=== PATIENT | male | born 1975 | race Asian ===

== ENCOUNTER 2019-01-19 00:22 | Emergency (ER) | payer SELFPAY ==
[~2019-01-19] VITALS: Ht 175.3 cm; Wt 70.3 kg
[2019-01-19 00:32] VITALS: Ht 175.3 cm; Wt 70.3 kg
[2019-01-19 02:16] LABS: BASOPHIL % 0.3 % (0-2); PLATELET COUNT 166 x10^3mcL (130-400); RED CELL DISTRIBUTION WIDTH 13.6 % (11.5-14.5)
[2019-01-19 02:24] LABS: CALCIUM 9.7 mg/dL (8.5-10.1); CARBON DIOXIDE 23.6 mmol/L (21-32); CREATININE SERUM 1.5 mg/dL (0.7-1.3); POTASSIUM SERUM 4.2 mmol/L (3.5-5.1)
[2019-01-19 02:29] LABS: ALBUMIN 4.2 g/dL (3.4-5.0); BILIRUBIN TOTAL 0.77 mg/dL (0.20-1.00)
[2019-01-19 02:31] LABS: TOTAL PROTEIN, SERUM 8.5 g/dL (6.4-8.2)
[2019-01-19 05:21] VITALS: BP 133/94
== END 2019-01-19 04:52 | disposition home or self-care (01) ==
LOC: ED 00:22
PROVIDERS: Emergency Medicine
DX: R07.89 Other chest pain (principal); M54.9 Dorsalgia, unspecified; R06.02 Shortness of breath; Y04.8XXA Assault by other bodily force, initial encounter; Y93.89 Activity, other specified; Y92.89 Other specified places as the place of occurrence of the external cause; Y99.8 Other external cause status
CPT/HCPCS: 36415; Q0092

== ENCOUNTER 2019-01-21 15:26 | Emergency (ER) | payer SELFPAY ==
[~2019-01-21] VITALS: Ht 170.2 cm; Wt 69.4 kg
[2019-01-21 15:35] VITALS: Ht 170.2 cm; Wt 69.4 kg
[2019-01-21 18:59] VITALS: BP 117/85
== END 2019-01-21 18:59 | disposition home or self-care (01) ==
LOC: ED 15:26
DX: F41.9 Anxiety disorder, unspecified (principal); F43.9 Reaction to severe stress, unspecified